=== PATIENT | male | born 1980 | race Caucasian/White ===

== ENCOUNTER 2017-01-18 07:20 | Emergency (ER) | payer OTHER | END 2017-01-18 07:48 | disposition home or self-care (01) | LOC: ER 07:20 | DX: I10 Essential (primary) hypertension (principal); F19.939 Other psychoactive substance use, unspecified with withdrawal, unspecified; F17.210 Nicotine dependence, cigarettes, uncomplicated; Z88.0 Allergy status to penicillin; Z88.2 Allergy status to sulfonamides ==

== ENCOUNTER 2017-01-24 19:26 | Emergency (ER) | payer OTHER | END 2017-01-24 20:19 | disposition home or self-care (01) | LOC: ER 19:26 | DX: R11.2 Nausea with vomiting, unspecified (principal); I10 Essential (primary) hypertension; F17.210 Nicotine dependence, cigarettes, uncomplicated; Z88.0 Allergy status to penicillin; Z88.2 Allergy status to sulfonamides ==

== ENCOUNTER 2017-04-25 00:44 | Emergency (ER) | payer OTHER | END 2017-04-25 03:47 | disposition home or self-care (01) | LOC: ER 00:44 | DX: E86.0 Dehydration (principal); I10 Essential (primary) hypertension; M54.5 Low back pain; R05 Cough; F17.210 Nicotine dependence, cigarettes, uncomplicated; Z79.899 Other long term (current) drug therapy; Z88.0 Allergy status to penicillin; Z88.2 Allergy status to sulfonamides | CPT/HCPCS: 36415; 96374; J2550 ==

== ENCOUNTER 2017-05-01 15:16 | Emergency (ER) | payer OTHER | END 2017-05-01 22:15 | disposition critical access hospital (66) | LOC: ER 15:16 | DX: N17.9 Acute kidney failure, unspecified (principal); I95.9 Hypotension, unspecified; Z79.899 Other long term (current) drug therapy | CPT/HCPCS: 36415; 51702; 80307; 96360; 96361; Q9967 ==

== ENCOUNTER 2017-05-01 15:16 | Inpatient (IN) | payer OTHER ==
[~2017-05-01] VITALS: Ht 182.9 cm; Wt 105.4 kg
== END 2017-05-03 16:40 | disposition home or self-care (01) | DRG 315 ==
LOC: ER 15:16 → ICU 22:16 → MED 05-02 15:30
PROVIDERS: ADMIT Internal Medicine
DX: I95.9 Hypotension, unspecified (principal); N17.9 Acute kidney failure, unspecified; E86.0 Dehydration; E83.42 Hypomagnesemia; F17.210 Nicotine dependence, cigarettes, uncomplicated; T46.4X1A Poisoning by angiotensin-converting-enzyme inhibitors, accidental (unintentional), initial encounter; F12.10 Cannabis abuse, uncomplicated; Z87.898 Personal history of other specified conditions; I10 Essential (primary) hypertension; G89.29 Other chronic pain; M54.5 Low back pain; E11.40 Type 2 diabetes mellitus with diabetic neuropathy, unspecified; Z91.14 Patient's other noncompliance with medication regimen; Z79.899 Other long term (current) drug therapy; Z88.0 Allergy status to penicillin; Z88.2 Allergy status to sulfonamides; Z83.3 Family history of diabetes mellitus; Z82.49 Family history of ischemic heart disease and other diseases of the circulatory system; Z81.8 Family history of other mental and behavioral disorders; R10.9 Unspecified abdominal pain
CPT/HCPCS: 36415; 80307; 97161-GP; 97165; J1644; J7040; Q9967